=== PATIENT | female | born 2000 | race African-American/Black ===

== ENCOUNTER 2021-01-02 15:22 | Emergency (ER) | payer OTHER ==
[~2021-01-02] VITALS: Ht 177.8 cm; Wt 136.1 kg
[2021-01-02 16:06] LABS: BASOPHIL 0.5 % (0-2); BILIRUBIN NEGATIVE (NEGATIVE); BLOOD 3+ Ery/uL (NEGATIVE); CLARITY CLEAR (CLEAR); COLOR YELLOW (YELLOW); EOSINOPHIL 0.6 % (0-5); GLUCOSE (U) NORMAL (NORMAL); HCT 42.5 % (37.0-47.0); HGB 13.8 g/dl (12.5-16.0); LEUKOCYTES NEGATIVE Leu/uL (NEGATIVE); LYMPHOCYTE 20.7 % (15-48); MCH 28.9 pg (25.0-31.0); MCHC 32.5 g/dL (32.0-36.0); MCV 88.9 fL (78.0-100.0); MONOCYTE 4.2 % (0-12); NEUTROPHIL 73.3 % (41-80); NITRITE NEGATIVE (NEGATIVE); NRBC 0; PLT 273 K/uL (150-400); PROTEIN 1+ mg/dL (NEGATIVE); RBC 4.78 M/uL (4.20-5.40); RDW 12.6 % (11.5-14.0); SPECIFIC GRAVITY >=1.030 (1.001-1.030); UROBILINOGEN 0.2 mg/dL (0.2-1.0); WBC 10.4 K/uL (4.0-10.5)
[2021-01-02 16:13] LABS: BACTERIA 1+
[2021-01-02 16:39] LABS: LACTIC ACID 1.1 mmol/L (0.4-1.9)
[2021-01-02 16:41] LABS: ALBUMIN 3.5 g/dL (3.4-5.0); BILIRUBIN - TOTAL 0.4 mg/dL (0.2-1.0); BUN/CREAT RATIO (CALC) 16.4 RATIO; CREATININE 0.61 mg/dL (0.51-0.95); GLOBULIN (CALCULATION) 4.9 g/dL; POTASSIUM 4.2 mmol/L (3.5-5.1); TOTAL PROTEIN 8.4 g/dL (6.4-8.2)
[2021-01-02] MEDS ORDERED: ACETAMINOPHEN-1 EAC1 PO (20:13)
[2021-01-02] MEDS ORDERED: IBUPROFEN800 MG PO (20:13)
[2021-01-02] MEDS ORDERED: ONDANSETRON ODT4 MG SL (20:13)
== END 2021-01-02 20:47 | disposition home or self-care (01) ==
LOC: FER 15:22
PROVIDERS: Emergency Medicine
DX: N83.201 Unspecified ovarian cyst, right side (principal); E66.9 Obesity, unspecified
CPT/HCPCS: 36415; 76830; 80053; 81001; 83605; 83690; 85025; J1885; J2405; Q9967